=== PATIENT | female | born 1950 | race Caucasian/White ===

== ENCOUNTER 2023-10-03 09:28 | Emergency (ER) | payer MEDICARE ==
--- NOTE | 2023-10-03 09:48 | ERPHSYRPT ---
- History of Present Illness Time Seen by Provider: 10/03/23 09:45 Historian: patient, family Exam Limitations: no limitations Patient Subjective Stated Complaint: PT states "I have had chest pain for the past couple of days and it is not getting any better." Triage Nursing Assessment: Pt presented alert and oriented X 3, skin pwd. Pt ambulates with a limp. Pt resting comfortably on the bed. Physician History: This is a 73-year-old white female patient who was sent to us by the urgent care clinic because of complaint of left anterior chest pain that she describes as a pressure without radiation for 2 to 3 days. 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 She has never seen a sewing line baler. She has no documented history of coronary artery disease. Patient has never been a smoker of cigarettes. Patient does have a history of hyperlipidemia, gastroesophageal reflux disease, hypertension and hypothyroidism. Because of the persistence of her pain she thought she better be evaluated. Timing/Duration: day(s) (2 t 3), other (Not worse but persistent) Activities at Onset: none Quality: pressure Location: other (Left anterior chest) Chest Pain Radiation: no radiation Severity of Pain-Max: mild (To moderate) Severity of Pain-Current: mild Modifying Factors: Improves With: nothing Associated Symptoms: denies symptoms Prior Chest Pain/Cardiac Workup: no prior chest pain Nitro Today/Relief: no nitro taken today Aspirin Treatment Today: no aspirin today Allergies/Adverse Reactions: No Known Drug Allergies Allergy (Verified 10/03/23 09:35) Home Medications: Atorvastatin Calcium [Lipitor] 20 mg PO 10/03/23 [History] Levothyroxine Sodium 50 mcg PO 10/03/23 [History] Loratadine [Claritin] 10 mg PO 10/03/23 [History] Pantoprazole Sodium [Protonix] 40 mg PO 10/03/23 [History] lisinopriL [Lisinopril] 20 mg PO 10/03/23 [History] Hx Tetanus, Diphtheria Vaccination/Date Given: No Hx Influenza Vaccination/Date Given: No Hx Pneumococcal Vaccination/Date Given: Yes Travel Risk - International Travel Have you traveled outside of the country in past 3 weeks: No - Coronavirus Screening Are you exhibiting any of the following symptoms?: No Close contact with a COVID-19 positive Pt in past 14-21 Days: No - Vaccine Status Have you recieved a Covid-19 vaccination: No - Review of Systems Constitutional: No Symptoms Eyes: No Symptoms Ears, Nose, & Throat: No Symptoms Respiratory: No Symptoms Cardiac: Chest Pain Abdominal/Gastrointestinal: No Symptoms Genitourinary Symptoms: No Symptoms Musculoskeletal: No Symptoms Skin: No Symptoms Neurological: No Symptoms Psychological: No Symptoms Endocrine: No Symptoms Hematologic/Lymphatic: No Symptoms Immunological/Allergic: No Symptoms All Other Systems: Reviewed and Negative - Past Medical History Pertinent Past Medical History: Yes Neurological History: No Pertinent History ENT History: Cataracts Cardiac History: High Cholesterol, Hypertension Respiratory History: No Pertinent History Endocrine Medical History: Diabetes Type II Musculoskeletal History: Arthritis GI Medical History: GERD History: No Pertinent History Psycho-Social History: Anxiety, Depression Female Reproductive Disorders: No Pertinent History - Past Surgical History Past Surgical History: Yes Neuro Surgical History: No Pertinent History Cardiac: No Pertinent History Respiratory: Other Gastrointestinal: Cholecystectomy, Other Genitourinary: No Pertinent History Female Surgical History: Hysterectomy Other Surgical History: breast reduction - Social History Smoking Status: Never smoker Exposure to second hand smoke: No Drug Use: none Patient Lives Alone: Yes - Nursing Vital Signs Nursing Vital Signs: Initial Vital Signs Temperature 98.0 F 10/03/23 09:28 Pulse Rate 64 10/03/23 09:28 Respiratory Rate 20 10/03/23 09:28 Blood Pressure 150/72 10/03/23 09:28 O2 Sat by Pulse Oximetry 98 10/03/23 09:28 Pain Scale Pain Intensity 7 - Physical Exam General Appearance: no apparent distress, alert, anxiety, obese Eye Exam: PERRL/EOMI, eyes nml inspection Ears, Nose, Throat Exam: normal ENT inspection, moist mucous membranes Neck Exam: normal inspection, non-tender, supple, full range of motion Respiratory Exam: normal breath sounds, lungs clear, airway intact, No chest tenderness, No respiratory distress Cardiovascular Exam: regular rate/rhythm, normal heart sounds, normal peripheral pulses Gastrointestinal/Abdomen Exam: soft, normal bowel sounds, No tenderness Pelvic Exam: not done Rectal Exam: not done Back Exam: normal inspection, normal range of motion, No CVA tenderness, No vertebral tenderness Extremity Exam: normal inspection, normal range of motion, pelvis stable Neurologic Exam: alert, oriented x 3, cooperative, 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 Care 10/03/23 09:49 Active EKG-ER Only STAT Care 10/03/23 09:48 Active IV Insertion STAT Care 10/03/23 09:48 Active Pulse Oximetry (ED) STAT Care 10/03/23 09:48 Active CHEST 1 VIEW (PORTABLE) Stat Exams 10/03/23 09:49 Completed CHEST WITH CONTRAST [CT] Stat Exams 10/03/23 11:06 Completed CBC W DIFF Stat Lab 10/03/23 09:40 Completed CMP Stat Lab 10/03/23 09:40 Completed D-DIMER QUANTITATIVE Stat Lab 10/03/23 09:40 Completed NT PRO BNPII Stat Lab 10/03/23 09:40 Completed PROTIME WITH INR Stat Lab 10/03/23 09:40 Completed TROPONIN Q4H Lab 10/03/23 09:40 Completed TROPONIN Q4H Lab 10/03/23 14:00 Ordered TROPONIN Q4H Lab 10/03/23 18:00 Ordered TSH, 3RD Generation Stat Lab 10/03/23 09:40 Completed Medication Summary Generic Name Dose Route Start Last Admin Trade Name Freq PRN Reason Stop Dose Admin Sodium Chloride 500 mls @ 500 mls/hr 10/03/23 11:05 10/03/23 11:11 Sodium Chloride 0.9% 500 Ml IV 10/03/23 12:04 500 mls/hr .Q1H ONE Administration Discontinued Medications Generic Name Dose Route Start Last Admin Trade Name Freq PRN Reason Stop Dose Admin Aspirin 324 mg 10/03/23 09:48 10/03/23 09:54 Aspirin 81 Mg Tab.Chew PO 10/03/23 09:49 324 mg STAT ONE Administration Aspirin Confirm 10/03/23 09:53 Aspirin 81 Mg Tab.Chew Administered 10/03/23 09:54 Dose 324 mg .ROUTE .STK-MED ONE Methylprednisolone Sodium 0 mg 10/03/23 10:25 10/03/23 10:48 Succinate 125 mg/ Sterile IV 10/03/23 10:26 125 mg Water 2 ml STAT ONE Administration Ceftriaxone Sodium 1 gm in 100 mls @ 200 mls/hr 10/03/23 10:25 10/03/23 11:23 Rocephin 1 Gm / 100 Ml Nacl IV 10/03/23 10:54 Infused STAT ONE Infusion Ceftriaxone Sodium Confirm 10/03/23 10:46 Rocephin 1 Gm / 100 Ml Nacl Administered 10/03/23 10:47 Dose 1 gm in 100 mls @ ud IV .STK-MED ONE Sodium Chloride Confirm 10/03/23 11:08 Sodium Chloride 0.9% 500 Ml Administered 10/03/23 11:09 Dose 500 mls @ ud IV .STK-MED ONE Methylprednisolone Sodium Succinate Confirm 10/03/23 10:46 Methylprednis Sod Succ 125 Mg/2 Ml Vial Administered 10/03/23 10:47 Dose 125 mg .ROUTE .STK-MED ONE Sterile Water Confirm 10/03/23 10:46 Water For Injection,Sterile 10 Ml Vial Administered 10/03/23 10:47 Dose 10 ml IJ .STK-MED ONE Lab/Rad Data: Laboratory Result Diagrams 10/03/23 09:40 10/03/23 09:40 Laboratory Results 10/03/23 10/03/23 10/03/23 Range/Units 09:40 09:40 09:40 WBC (4.0-10.5) x10^3/uL RBC (4.1-5.4) x10^6/uL Hgb (12.0-16.0) g/dL Hct (35-47) % MCV (78-100) fL MCH (26-32) pg MCHC (32-36) g/dL RDW (11.5-14.0) % Plt Count (150-450) x10^3/uL MPV (7.5-11.0) fL Gran % (36.0-66.0) % Immature Gran % (Auto) (0.00-0.4) % Nucleat RBC Rel Count (0.00-0.1) % Eos # (Auto) (0-0.5) x10^3/uL Immature Gran # (Auto) (0.00-0.03) x10^3u/L Absolute Lymphs (auto) (1.0-4.6) x10^3/uL Absolute Monos (auto) (0.0-1.3) x10^3/uL Absolute Nucleated RBC (0.00-0.01) x10^3u/L Lymphocytes % (24.0-44.0) % Monocytes % (0.0-12.0) % Eosinophils % (0.00-5.0) % Basophils % (0.0-0.4) % Absolute Granulocytes (1.4-6.9) x10^3/uL Basophils # (0-0.4) x10^3/uL PT 10.5 (9.4-12.5) SECONDS INR 0.96 (0.8-3.0) D-Dimer 0.78 H* (0.0-0.50) mg/L Sodium 140 (135-145) mmol/L Potassium 3.7 (3.5-5.1) mmol/L Chloride 108 H (98-107) mmol/L Carbon Dioxide 26 (22-30) mmol/L Anion Gap 9.1 (5-15) MEQ/L BUN 3 L (7-17) mg/dL Creatinine 0.72 (0.52-1.04) mg/dL Estimated GFR 87.1 ML/MIN Glucose 103 (74-106) mg/dL Calcium 9.0 (8.4-10.2) mg/dL Total Bilirubin 0.60 (0.2-1.3) mg/dL AST 34 (14-36) U/L ALT 19 (0-35) U/L Alkaline Phosphatase 138 H (38-126) U/L Troponin I < 0.012 (0.000-0.034) ng/mL NT-Pro-B Natriuret Pep 187 (<300) pg/mL Serum Total Protein 6.2 L (6.3-8.2) g/dL Albumin 3.7 (3.5-5.0) g/dL TSH 3rd Generation 0.968 (0.47-4.68) mIU/L 10/03/23 Range/Units 09:40 WBC 6.4 (4.0-10.5) x10^3/uL RBC 4.00 L (4.1-5.4) x10^6/uL Hgb 11.9 L (12.0-16.0) g/dL Hct 37.5 (35-47) % MCV 93.8 (78-100) fL MCH 29.8 (26-32) pg MCHC 31.7 L (32-36) g/dL RDW 13.8 (11.5-14.0) % Plt Count 286 (150-450) x10^3/uL MPV 10.4 (7.5-11.0) fL Gran % 59.7 (36.0-66.0) % Immature Gran % (Auto) 0.2 (0.00-0.4) % Nucleat RBC Rel Count 0.0 (0.00-0.1) % Eos # (Auto) 0.14 (0-0.5) x10^3/uL Immature Gran # (Auto) 0.01 (0.00-0.03) x10^3u/L Absolute Lymphs (auto) 1.84 (1.0-4.6) x10^3/uL Absolute Monos (auto) 0.50 (0.0-1.3) x10^3/uL Absolute Nucleated RBC 0.00 (0.00-0.01) x10^3u/L Lymphocytes % 28.9 (24.0-44.0) % Monocytes % 7.9 (0.0-12.0) % Eosinophils % 2.2 (0.00-5.0) % Basophils % 1.1 (0.0-0.4) % Absolute Granulocytes 3.80 (1.4-6.9) x10^3/uL Basophils # 0.07 (0-0.4) x10^3/uL PT (9.4-12.5) SECONDS INR (0.8-3.0) D-Dimer (0.0-0.50) mg/L Sodium (135-145) mmol/L Potassium (3.5-5.1) mmol/L Chloride (98-107) mmol/L Carbon Dioxide (22-30) mmol/L Anion Gap (5-15) MEQ/L BUN (7-17) mg/dL Creatinine (0.52-1.04) mg/dL Estimated GFR ML/MIN Glucose (74-106) mg/dL Calcium (8.4-10.2) mg/dL Total Bilirubin (0.2-1.3) mg/dL AST (14-36) U/L ALT (0-35) U/L Alkaline Phosphatase (38-126) U/L Troponin I (0.000-0.034) ng/mL NT-Pro-B Natriuret Pep (<300) pg/mL Serum Total Protein (6.3-8.2) g/dL Albumin (3.5-5.0) g/dL TSH 3rd Generation (0.47-4.68) mIU/L - Progress Progress: improved, re-examined Air Movement: good Progress Note: 10/03/23 10:02 This patient's medical issue is 1 of moderate complexity. The level of complexity and the workup performed is based on review of the patient's past medical history, review of the patient's medication list, review of the [facility] ient's drug allergy list, history of present illness and physical findings on examination. The workup in this patient includes placement of intravenous line, provide the patient with 4 baby aspirin, CBC, CMP, twelve-lead EKG, BNP, D- dimer, troponin level, chest x-ray and TSH level. 10/03/23 10:25 The chest x-ray was interpreted by the radiologist and I reviewed the impression. Impression states new lingular infiltrate/atelectasis. 10/03/23 12:00 I interpreted the patient's laboratory data results. The patient did have an elevated D-dimer. Because of the elevated D-dimer and associated shortness of breath and chest pain I ordered a CT of the chest with contrast to evaluate for pulmonary embolus. CT scan of the chest with contrast was interpreted by the radiologist and I reviewed the impression. I also discussed the impression/results with the patient. There is no obvious pulmonary embolus. There is small right lower lobe noncalcified nodule. Patient was told to follow-up with her primary care provider for further evaluation of this nodule. There is a moderate size hiatal hernia with partial intrathoracic stomach. There is borderline cardiomegaly present Blood Culture(s) Obtained: No Antibiotics given: Yes Counseled pt/family regarding: lab results, diagnosis, need for follow-up, rad results Medical Desision Making - Diagnostic Testing Diagnostic test were ordered, analyzed, and reviewed by me: Yes Radiological Interpretation: Reviewed by me, Teleradiologist Report - Risk of complications The pt has a mod risk of morbidity or mortality based on: Need for prescription drug management - Departure Departure Disposition: Home Clinical Impression: Left upper lobe pneumonia, Right lower lobe pulmonary nodule Condition: Stable Critical Care Time: No Referrals: SHAGUFTA CAVANAUGH, [NON-STAFF PHY W/O PRIVILEGES] - Follow up/PCP as directed Additional Instructions: Take your medications as prescribed. Call your primary care provider today to make arrangements for follow-up appointment in the next 3 to 5 days to follow-up your left-sided pneumonia and your right lung nodule Prescriptions: Prednisone 10 mg [Deltasone 10 mg] 10 mg PO TID #12 tablet Azithromycin 250 mg [Zithromax 250 MG TABLET] 250 mg PO ZPACK #6 tablet
[2023-10-03] MEDS ORDERED: BABY ASPIRIN 81 MG CHEW ONE (09:53)
[2023-10-03] MEDS: BABY ASPIRIN 81 MG CHEW PO ONE (09:54)
[2023-10-03 10:04] LABS: BASOPHIL % 1.1 % (0.0-0.4); Basophil (Absolute #) 0.07 x10^3/uL (0-0.4); Eosinophil % 2.2 % (0.00-5.0); Eosinophil (Absolute #) 0.14 x10^3/uL (0-0.5); Hematocrit 37.5 % (35-47); Hemoglobin 11.9 g/dL (12.0-16.0); IMMATURE GRAN # 0.01 x10^3u/L (0.00-0.03); IMMATURE GRAN % 0.2 % (0.00-0.4); Lymphocyte (Absolute #) 1.84 x10^3/uL (1.0-4.6); Lymphocytes % 28.9 % (24.0-44.0); Mean Cell Volume 93.8 fL (78-100); Mean Corpuscular Hemoglobin 29.8 pg (26-32); Mean Corpuscular Hgb Concent. 31.7 g/dL (32-36); Mean Platelet Volume 10.4 fL (7.5-11.0); Monocytes % 7.9 % (0.0-12.0); Neutrophil % 59.7 % (36.0-66.0); Platelet Count 286 x10^3/uL (150-450); Red Cell Distribution Width 13.8 % (11.5-14.0); White Blood Count 6.4 x10^3/uL (4.0-10.5)
--- NOTE | 2023-10-03 10:17 | XRAY ---
Indication: Chest pain and short of breath. Comparison: June 01, 2019 Portable chest demonstrates new lingula infiltrate/atelectasis. Remaining heart and lungs unremarkable again with incidental azygos lobe. Bony thorax intact again with osteopenia and degenerative changes.
[2023-10-03 10:30] LABS: INR 0.96 (0.8-3.0); PROTIME 10.5 SECONDS (9.4-12.5)
[2023-10-03 10:32] LABS: D-DIMER QUANTITATIVE 0.78 mg/L (0.0-0.50)
[2023-10-03] MEDS ORDERED: solu-MEDROL ONE (10:46)
[2023-10-03] MEDS ORDERED: ROCEPHIN 1 GM / 100 ML NaCl 1 GM/100 ML IVPB IV ONE (10:46)
[2023-10-03] MEDS ORDERED: Sterile H2O 10 ml IJ ONE (10:46)
[2023-10-03] MEDS: ROCEPHIN 1 GM / 100 ML NaCl 1 GM/100 ML IVPB IV ONE (10:47)
[2023-10-03 10:48] LABS: ALBUMIN 3.7 g/dL (3.5-5.0); ANION GAP 9.1 MEQ/L (5-15); BILIRUBIN,TOTAL 0.6 mg/dL (0.2-1.3); Creatinine 1 0.72 mg/dL (0.52-1.04); EST GLOMERULAR FILTRATION RATE 87.1 ML/MIN; Potassium 3.7 mmol/L (3.5-5.1); TSH, 3RD Generation 0.968 mIU/L (0.47-4.68); Total Protein 6.2 g/dL (6.3-8.2)
[2023-10-03] MEDS: solu-MEDROL 125 MG, Sterile H2O 10 ml 2 ML IV ONE (10:48)
[2023-10-03] MEDS ORDERED: Sodium Chloride 0.9% 500 ML 500 ML IV ONE (11:08)
[2023-10-03] MEDS: Sodium Chloride 0.9% 500 ML 500 ML IV ONE (11:11)
--- NOTE | 2023-10-03 11:49 | XRAY ---
Indication: Chest pain and short of breath. Elevated d-dimer. Multiple contiguous axial images obtained through the chest using 80 cc of Isovue-370 contrast and PE protocol. Comparison: None Good opacification of the pulmonary arteries to include the lobar and segmental branches. Mild respiration artifact limits evaluation of the more distal segmental branches. No obvious pulmonary embolus. Heart is borderline enlarged. Aorta is normal in course and caliber. Incidental anatomic variant recurrent right subclavian artery coursing retroesophageal. No pathologic mediastinal/hilar lymphadenopathy. Moderate size hiatal hernia with partial intrathoracic stomach. Lungs demonstrates anatomic variant for azygos lobe. Minimal bilateral dependent atelectasis. Medial right lower lobe demonstrates 7 x 11 mm noncalcified nodule. No infiltrate, consolidation, or effusion. Bony thorax intact with osteopenia and minimal degenerative changes throughout the spine. Limited upper abdomen demonstrates fatty liver and cholecystectomy clips. Impression: 1. Respiration artifact limits pulmonary embolus evaluation. No obvious pulmonary embolus. 2. Small right lower lobe indeterminate noncalcified nodule. Outside comparison studies recommended if available. If not, recommend follow-up per Fleischner guidelines. 3. Chronic findings including borderline cardiomegaly, hiatal hernia with partial intrathoracic stomach, chronic bony findings, and fatty liver.
[2023-10-03 11:51] VITALS: BP 139/69
[2023-10-03 12:03] VITALS: O2SAT 98
[2023-10-03 12:10] VITALS: PULSE 98; RESP 20; TEMP 97.2
== END 2023-10-03 12:24 | disposition home or self-care (01) ==
LOC: ED 09:28
DX: J18.9 Pneumonia, unspecified organism (principal); R91.1 Solitary pulmonary nodule; R07.9 Chest pain, unspecified; E78.5 Hyperlipidemia, unspecified; I10 Essential (primary) hypertension; E11.9 Type 2 diabetes mellitus without complications; Z79.52 Long term (current) use of systemic steroids; Z79.899 Other long term (current) drug therapy; Z28.310 Unvaccinated for COVID-19
CPT/HCPCS: 36000; 36415; 71045; 71260; 80053; 83880; 84443; 84484; 85025; 85379; 85610; 93005; 93041; 94760; 96365; 96374; 99284; J0696; J2930; A9270-GY

== ENCOUNTER 2023-10-30 13:00 | Emergency (ER) | payer MEDICARE ==
--- NOTE | 2023-10-30 13:09 | ERPHSYRPT ---
- History of Present Illness Time Seen by Provider: 10/30/23 13:09 Historian: patient, family Exam Limitations: no limitations Physician History: This is a 73-year-old white female patient of Dr. Chung who walked in to the emergency department on her own with complaints of left lower quadrant abdominal pain. The pain began yesterday in the left lower quadrant and has been relatively localized in that area. She has never had a colonoscopy in the past. She has not had this degree of pain that has persisted this long. It is not radiating and it is described as sharp achiness with cramping pain. Patient has had a cholecystectomy and a hysterectomy performed in the past. Patient has a history of hyperlipidemia, gastroesophageal reflux disease, hypertension, hypothyroidism and diet-controlled diabetes. Patient has not had any vomiting or diarrhea symptoms. She has not passed dark tarry stools or bright red blood per rectum. Timing/Duration: yesterday Activities at Onset: none Quality: aching, cramping, sharpness Abdominal Pain Onset Location: LLQ Pain Radiation: no radiation Severity of Pain-Max: moderate Severity of Pain-Current: moderate Modifying Factors: Improves With: nothing Associated Symptoms: denies symptoms Previous symptoms: no prior history, no recent treatment Allergies/Adverse Reactions: No Known Drug Allergies Allergy (Verified 10/30/23 13:06) Home Medications: Atorvastatin Calcium [Lipitor] 20 mg PO 10/03/23 [History] Levothyroxine Sodium 50 mcg PO 10/03/23 [History] Loratadine [Claritin] 10 mg PO 10/03/23 [History] Pantoprazole Sodium [Protonix] 40 mg PO 10/03/23 [History] lisinopriL [Lisinopril] 20 mg PO 10/03/23 [History] Hx Tetanus, Diphtheria Vaccination/Date Given: No Hx Influenza Vaccination/Date Given: No Hx Pneumococcal Vaccination/Date Given: Yes Travel Risk - International Travel Have you traveled outside of the country in past 3 weeks: No - Emerging Infectious Disease Are you exhibiting symptoms associated with any current EIDs: No - Review of Systems Constitutional: No Symptoms Eyes: No Symptoms Ears, Nose, & Throat: No Symptoms Respiratory: No Symptoms Cardiac: No Symptoms Abdominal/Gastrointestinal: Abdominal Pain Genitourinary Symptoms: No Symptoms (Left lower quadrant) Musculoskeletal: No Symptoms Skin: No Symptoms Neurological: No Symptoms Psychological: No Symptoms Endocrine: No Symptoms Hematologic/Lymphatic: No Symptoms Immunological/Allergic: No Symptoms All Other Systems: Reviewed and Negative - Past Medical History Pertinent Past Medical History: Yes Neurological History: No Pertinent History ENT History: Cataracts Cardiac History: High Cholesterol, Hypertension Respiratory History: No Pertinent History Endocrine Medical History: Diabetes Type II Musculoskeletal History: Arthritis GI Medical History: GERD History: No Pertinent History Psycho-Social History: Anxiety, Depression Female Reproductive Disorders: No Pertinent History - Past Surgical History Past Surgical History: Yes Neuro Surgical History: No Pertinent History Cardiac: No Pertinent History Respiratory: Other Gastrointestinal: Cholecystectomy, Other Genitourinary: No Pertinent History Female Surgical History: Hysterectomy Other Surgical History: breast reduction - Social History Smoking Status: Never smoker Exposure to second hand smoke: No Drug Use: none Patient Lives Alone: Yes - Nursing Vital Signs Nursing Vital Signs: Initial Vital Signs Temperature 98.6 F 10/30/23 13:08 Pulse Rate 92 H 10/30/23 13:08 Respiratory Rate 18 10/30/23 13:08 O2 Sat by Pulse Oximetry 98 10/30/23 13:08 Pain Scale Pain Intensity 9 - Physical Exam General Appearance: no apparent distress, alert, anxiety, obese Eye Exam: PERRL/EOMI, eyes nml inspection Ears, Nose, Throat Exam: normal ENT inspection, moist mucous membranes Neck Exam: normal inspection, non-tender, supple, full range of motion Respiratory Exam: normal breath sounds, lungs clear, airway intact, No chest tenderness, No respiratory distress Cardiovascular Exam: regular rate/rhythm, normal heart sounds, normal peripheral pulses Gastrointestinal/Abdomen Exam: soft, normal bowel sounds, tenderness (Lower quadrant to palpation), guarding (Left lower quadrant to palpation), rebound (Left lower quadrant to palpation) Pelvic Exam: not done Rectal Exam: not done Back Exam: normal inspection, normal range of motion, No CVA tenderness, No vertebral tenderness Extremity Exam: normal inspection, normal range of motion, pelvis stable Neurologic Exam: alert, oriented x 3, cooperative, diamond sorter II-XII nml as tested, no rmal mood/affect, nml cerebellar function, nml station & gait, sensation nml Skin Exam: normal color, warm, dry Lymphatic Exam: No adenopathy SpO2 Interpretation: normal O2 Delivery: Room Air - Course Nursing assessment & vital signs reviewed: Yes Ordered Tests: Active Orders 24 hr Category Date Time Status IV Insertion STAT Care 10/30/23 13:20 Active ABDOMEN AND PELVIS W/0 CONTRAS [CT] Stat Exams 10/30/23 13:21 Completed AMYLASE Stat Lab 10/30/23 13:15 Completed CBC W DIFF Stat Lab 10/30/23 13:15 Completed CMP Stat Lab 10/30/23 13:15 Completed LIPASE Stat Lab 10/30/23 13:15 Completed Manual Differential NC Stat Lab 10/30/23 13:15 Completed UA W/RFX UR CULTURE Stat Lab 10/30/23 14:02 Completed Medication Summary Generic Name Dose Route Start Last Admin Trade Name Freq PRN Reason Stop Dose Admin Sodium Chloride 1,000 mls @ 100 mls/hr 10/30/23 13:30 10/30/23 13:30 Sodium Chloride 0.9% 1000 Ml IV 11/29/23 13:29 100 mls/hr .Q10H PENNIE Administration Discontinued Medications Generic Name Dose Route Start Last Admin Trade Name Freq PRN Reason Stop Dose Admin Morphine Sulfate 4 mg 10/30/23 13:20 10/30/23 13:32 Morphine Sulfate 4 Mg/Ml Injection IV 10/30/23 13:21 4 mg STAT ONE Administration Morphine Sulfate Confirm 10/30/23 13:26 Morphine Sulfate 4 Mg/Ml Injection Administered 10/30/23 13:27 Dose 4 mg .ROUTE .STK-MED ONE Ondansetron HCl 4 mg 10/30/23 13:20 10/30/23 13:31 Ondansetron Hcl 4 Mg/2 Ml Vial IV 10/30/23 13:21 4 mg STAT ONE Administration Ondansetron HCl Confirm 10/30/23 13:26 Ondansetron Hcl 4 Mg/2 Ml Vial Administered 10/30/23 13:27 Dose 4 mg .ROUTE .STK-MED ONE Lab/Rad Data: Laboratory Result Diagrams 10/30/23 13:15 10/30/23 13:15 Laboratory Results 10/30/23 10/30/23 10/30/23 Range/Units 14:02 13:15 13:15 WBC 11.7 H (4.0-10.5) x10^3/uL RBC 4.11 (4.1-5.4) x10^6/uL Hgb 12.2 (12.0-16.0) g/dL Hct 37.7 (35-47) % MCV 91.7 (78-100) fL MCH 29.7 (26-32) pg MCHC 32.4 (32-36) g/dL RDW 13.9 (11.5-14.0) % Plt Count 263 (150-450) x10^3/uL MPV 10.7 (7.5-11.0) fL Segmented Neutrophils 72 H (36.0-66.0) % Band Neutrophils 2 (0.0-2.0) % Lymphocytes (Manual) 19 L (24-44) % Monocytes (Manual) 4 (0.0-12.0) % Eosinophils (Manual) 3 (0.00-3.0) % Toxic Granulation 1+ Platelet Estimate NORMAL (NORMAL) RBC Morphology NORMAL Sodium 139 (135-145) mmol/L Potassium 3.5 (3.5-5.1) mmol/L Chloride 106 (98-107) mmol/L Carbon Dioxide 27 (22-30) mmol/L Anion Gap 9.5 (5-15) MEQ/L BUN 5 L (7-17) mg/dL Creatinine 0.68 (0.52-1.04) mg/dL Estimated GFR 90.8 ML/MIN Glucose 106 (74-106) mg/dL Calcium 9.0 (8.4-10.2) mg/dL Total Bilirubin 1.10 (0.2-1.3) mg/dL AST 26 (14-36) U/L ALT 17 (0-35) U/L Alkaline Phosphatase 149 H (38-126) U/L Serum Total Protein 6.7 (6.3-8.2) g/dL Albumin 3.8 (3.5-5.0) g/dL Amylase 45 (30-110) U/L Lipase 26 (23-300) U/L Urine Color Yellow (Yellow) Urine Appearance Clear (Clear) Urine pH 7.0 (4.6-8.0) Ur Specific [place] <=1.005 (1.005-1.030) Urine Protein Negative (Negative) Urine Glucose (UA) Negative (Negative) mg/dL Urine Ketones Negative (Negative) Urine Blood Negative (Negative) Urine Nitrite Negative (Negative) Urine Bilirubin Negative (Negative) Urine Urobilinogen 0.2 (0.2) mg/dL Ur Leukocyte Esterase Trace A (Negative) U Hyaline Cast (Auto) NONE SEEN (0-2) /LPF Urine Microscopic RBC 0-2 (0-5) /HPF Urine Microscopic WBC 3-5 (0-5) /HPF Ur Epithelial Cells None Seen (None Seen) /HPF Urine Bacteria None Seen (None Seen) /HPF Urine Culture Reflexed NO (NO) - Progress Progress: improved, pain not gone completely, re-examined Progress Note: 10/30/23 13:46 Medical decision making and the assignment of moderate to high complexity to this patient's medical issue/complaint is based on review of the patient's past medical history, review the patient's medication list, review the patient drug allergy list, history of present illness and physical findings on examination. The workup in this patient includes placement of intravenous line, infusion of normal saline solution, infusion of 4 mg intravenous Zofran, infusion 4 mg intravenous morphine, urinalysis, amylase, lipase, CBC, CMP as well as CT scan of the abdomen pelvis without contrast. Differential diagnosis includes diverticulitis, ureterolithiasis, urinary tract infection/kidney infection, muscle skeletal pain, pancreatitis, colonic mass and bowel obstruction 10/30/23 14:[address] scan of the abdomen pelvis without contrast was interpreted by the radiologist and I reviewed the impression. The impression states hiatal hernia with partial intrathoracic stomach. There is an unchanged right lower lobe indeterminate noncalcified nodule when compared to CT scan of the chest findings dated 10/03/2023. Follow-up is recommended. This was discussed with the patient during this visit. There is evidence of colonic diverticulosis with mild diverticulitis of the descending colon. There are no complications present. Counseled pt/family regarding: lab results, diagnosis, rad results Medical Desision Making - Diagnostic Testing Diagnostic test were ordered, analyzed, and reviewed by me: Yes Radiological Interpretation: Reviewed by me, Teleradiologist Report - Risk of complications The pt has a mod risk of morbidity or mortality based on: Need for prescription drug management - Departure Departure Disposition: Home Clinical Impression: Lung nodule seen on imaging study, Hiatal hernia, Diverticulitis of descending colon Condition: Stable Critical Care Time: No Referrals: FRANSISCO CHUNG, [Primary Care Provider] - Follow up/PCP as directed Additional Instructions: Drink plenty of clear liquids before advancing your diet. Take your antibiotics and other medications as prescribed. Follow-up with your primary care provider tomorrow, 10/31/2023, to make arrangements for follow-up appointment in the next 5 to 7 days. Prescriptions: Hydrocodone/APAP 5/325 [[place] 5/325 mg] 1 each PO Q8H PRN PRN #8 tablet MDD 3 PRN Reason: Pain Ciprofloxacin [Cipro 500 MG] 500 mg PO BID #14 tablet Metronidazole 500 mg [Flagyl 500 MG] 500 mg PO TID #21 tablet
[2023-10-30 13:13] VITALS: TEMP 98.6
[2023-10-30] MEDS ORDERED: Zofran 4 MG/2 ML VIAL ONE (13:26)
[2023-10-30] MEDS ORDERED: MORPHINE SULFATE 4 MG INJ ONE (13:26)
[2023-10-30] MEDS ORDERED: Sodium Chloride 0.9% 1000 ML 1,000 ML ONE (13:27)
[2023-10-30 13:29] LABS: Hematocrit 37.7 % (35-47); Hemoglobin 12.2 g/dL (12.0-16.0); Mean Cell Volume 91.7 fL (78-100); Mean Corpuscular Hemoglobin 29.7 pg (26-32); Mean Corpuscular Hgb Concent. 32.4 g/dL (32-36); Mean Platelet Volume 10.7 fL (7.5-11.0); Platelet Count 263 x10^3/uL (150-450); Red Blood Count 4.11 x10^6/uL (4.1-5.4); Red Cell Distribution Width 13.9 % (11.5-14.0); White Blood Count 11.7 x10^3/uL (4.0-10.5)
[2023-10-30] MEDS: Sodium Chloride 0.9% 1000 ML 1,000 ML IV SCH (13:30)
[2023-10-30] MEDS: Zofran 4 MG/2 ML VIAL IV ONE (13:31)
[2023-10-30] MEDS: MORPHINE SULFATE 4 MG INJ IV ONE (13:32)
[2023-10-30 13:42] LABS: ALBUMIN 3.8 g/dL (3.5-5.0); ANION GAP 9.5 MEQ/L (5-15); BILIRUBIN,TOTAL 1.1 mg/dL (0.2-1.3); Creatinine 1 0.68 mg/dL (0.52-1.04); EST GLOMERULAR FILTRATION RATE 90.8 ML/MIN; Potassium 3.5 mmol/L (3.5-5.1); Total Protein 6.7 g/dL (6.3-8.2)
[2023-10-30 13:46] LABS: BAND 2 % (0.0-2.0); Eosinophil 3 % (0.00-3.0); Lymphocytes 19 % (24-44); Monocyte 4 % (0.0-12.0); Neutrophils 72 % (36.0-66.0); Platelet Estimate NORMAL (NORMAL); Total Cells Counted 100; Toxic Granulation 1+
[2023-10-30 14:04] VITALS: BP 144/89; PULSE 79; RESP 18; O2SAT 93
--- NOTE | 2023-10-30 14:04 | XRAY ---
Indication: Left lower quadrant pain. Multiple contiguous axial images obtained through the abdomen and pelvis without contrast. Comparison: None Lung bases demonstrate 7 x 11 mm medial right lower lobe noncalcified nodule. No infiltrate or effusion. Heart not enlarged. Moderate-sized hiatal hernia with partial intrathoracic stomach. Noncontrasted stomach and bowel loops appear nonobstructed with normal appendix. Mild scattered descending and sigmoid diverticulosis. Mid descending colon demonstrates mild diverticulitis. Previous cholecystectomy and hysterectomy. No free fluid/air. Remaining liver, pancreas, spleen, adrenal glands, kidneys, ureters, and bladder are unremarkable for noncontrast exam. Mild scattered aortoiliac calcifications without AAA. Osseous structures intact with osteopenia, minimal/mild degenerative changes throughout lumbar spine, mild levoscoliosis centered at L3, and mild degenerative changes both hips. Impression: 1. Colonic diverticulosis with mild diverticulitis descending colon. No complications. 2. Right lower lobe indeterminant noncalcified nodule unchanged with respect to CT chest October 03, 2023. Recommend follow-up per Fleischner guidelines. 3. Chronic findings including hiatal hernia with partial intrathoracic stomach, arteriosclerotic disease, and chronic bony findings.
[2023-10-30 14:10] LABS: ADD URINE CULTURE? NO (NO); Appearance Clear (Clear); Bacteria None Seen /HPF (None Seen); Bilirubin Negative (Negative); Blood Negative (Negative); Epithelial Cells None Seen /HPF (None Seen); Glucose, Urine Negative (Negative); Hyaline Casts NONE SEEN /LPF (0-2); Ketones Negative (Negative); Leukocyte Esterase Trace (Negative); Nitrite Negative (Negative); Protein,Urine Dip Negative (Negative); RBC 0-2 /HPF (0-5); Specific Gravity <=1.005 (1.005-1.030); Urobilinogen 0.2 mg/dL (0.2)
[2023-10-30] MEDS ORDERED: Levofloxacin 500 MG Tablet ONE (14:31)
[2023-10-30] MEDS ORDERED: Flagyl 500 MG ONE (14:31)
[2023-10-30] MEDS: Levofloxacin 500 MG Tablet PO ONE (14:33)
[2023-10-30] MEDS: Flagyl 500 MG PO ONE (14:33)
== END 2023-10-30 14:52 | disposition home or self-care (01) ==
LOC: ED 13:00
DX: R91.1 Solitary pulmonary nodule (principal); K44.9 Diaphragmatic hernia without obstruction or gangrene; K57.32 Diverticulitis of large intestine without perforation or abscess without bleeding; R10.32 Left lower quadrant pain; E78.5 Hyperlipidemia, unspecified; I10 Essential (primary) hypertension; E11.9 Type 2 diabetes mellitus without complications; Z79.899 Other long term (current) drug therapy
CPT/HCPCS: 36000; 36415; 74176; 80053; 81001; 82150; 83690; 85025; 96374; 96375; 99284; J2270; J2405; A9270-GY

== ENCOUNTER 2023-11-27 06:09 | Day surgery (SDC) | payer MEDICARE ==
[2023-11-27] MEDS ORDERED: Lactated Ringers 1,000 ML IV ONE ×2 (06:16→08:33)
[2023-11-27] MEDS: Lactated Ringers 1,000 ML IV SCH (06:26)
[2023-11-27] MEDS ORDERED: Xylocaine-Mpf 2% 5 Ml Vial ONE (08:01)
[2023-11-27] MEDS ORDERED: DIPRIVAN 200 MG/20 ML IV ONE ×3 (08:01→08:39)
[2023-11-27] MEDS ORDERED: SUBLIMAZE 100 MCG/2 ML ONE (08:07)
[2023-11-27] MEDS ORDERED: ROBINUL ONE (08:15)
[2023-11-27] MEDS ORDERED: GlucaGen 1 MG ONE (08:43)
[2023-11-27] MEDS ORDERED: Versed 2 MG/2 ML Injection ONE (08:56)
[2023-11-27] MEDS ORDERED: Ketamine HCl 50 MG/ML ONE (09:22)
[2023-11-27 09:50] VITALS: TEMP 97.2
[2023-11-27 10:06] VITALS: BP 146/75; PULSE 78; RESP 18; O2SAT 98
--- NOTE | 2023-11-27 10:22 | OP ---
SURGERY DATE/TIME: 11/27/2023 0800 PREOPERATIVE DIAGNOSES: 1) Diverticulitis. 2) Abdominal pain. POSTOPERATIVE DIAGNOSES: 1) Multiple colon polyps. 2) Unresected colon mass at 25 cm scope depth in distal sigmoid colon. 3) Diverticulosis. PROCEDURE: Colonoscopy. SURGEON: Morgan Mercado M.D. ANESTHESIA: MAC by Mj Wan CRNA. QUANTITATIVE BLOOD LOSS: Minimal. SPECIMENS: 1) There were multiple snare polypectomies one from ascending colon polyp, one from hepatic flexure polyp, long filiform sigmoid colon polyp at 25 cm scope depth. 2) Cold forceps biopsy of a large sigmoid colon mass at 25 cm scope depth very near to the other polypectomy site. 3) Hot snare polypectomy from rectal colon polyp. DESCRIPTION OF PROCEDURE: After informed written consent was obtained, the patient was taken to the endoscopy suite. She was placed in left lateral decubitus position and anesthesia was titrated to desired level of consciousness. Digital rectal exam showed normal sphincter tone and no internal lesions. The scope was inserted into the rectum and sequentially the entire colonic mucosa was traversed. Large polypoid lesions were encountered upon entry. The level of cecum was reached and verified with direct visualization of the ileocecal valve. Upon withdrawal there was a large, what appeared to be a lipoma-type pedunculated polypoid lesion in the hepatic flexure which was grasped with a snare, removed, retrieved and sent to pathology. A smaller ascending colon polyp, which was grasped with a snare, cauterized at the base, removed with good hemostasis and retrieved for pathology. Upon withdrawal at the 25 cm scope depth distal sigmoid colon, there were two large lesions one was very long lesion on a stalk which was grasped with a forceps at the base, cauterized and in piecemeal fashion was freed and retrieved for polypectomy. The other large broad based lesion in the sigmoid colon was very friable and bled easily. I felt that it was too large to safely try to snare so I took multiple cold forceps biopsies. Again, it bled very easily and was very friable when grasped with the forceps and was a concerning appearing lesion. Pictures were taken of these lesions. There was a smaller sessile rectal polyp upon withdrawal, which was grasped with snare, cauterized and removed in its entirety. The patient was transferred to the recovery room in good condition. I had a discussion with her regarding concern for lesion and need for resection. We will await pathology and then arrange surgical consultation at that time.
== END 2023-11-27 10:20 | disposition home or self-care (01) ==
LOC: SDC 06:09
PROVIDERS: ATTEND Family Medicine
DX: K57.92 Diverticulitis of intestine, part unspecified, without perforation or abscess without bleeding (principal); R10.9 Unspecified abdominal pain; C18.9 Malignant neoplasm of colon, unspecified; K57.30 Diverticulosis of large intestine without perforation or abscess without bleeding; E11.9 Type 2 diabetes mellitus without complications; D12.2 Benign neoplasm of ascending colon; D12.3 Benign neoplasm of transverse colon; D12.5 Benign neoplasm of sigmoid colon
CPT/HCPCS: 82947; 99100; J1610; J2250; J2704; J3010